=== PATIENT | female | born 1970 | race Caucasian/White ===

== ENCOUNTER 2018-03-05 13:55 | Inpatient (IN) ==
[2018-03-05 14:24] LABS: BASO# 0.03 X1000 (0.0-0.2); BASO% 0.2 % (0.0-0.8); EOS# 0.14 X1000 (0.0-0.7); EOS% 0.9 % (0.0-10.0); HEMATOCRIT 42.6 % (37.0-47.0); HEMOGLOBIN 13.6 g/dL (12.0-16.0); IMM GRAN# 0.12 X1000 (0.0-0.04); IMM GRAN% 0.8 % (0.0-0.5); LYMPH# 2.61 X1000 (1.2-3.4); LYMPH% 17.3 % (20.5-51.1); MCH 28.4 PG (27-31); MCHC 31.9 g/dL (33-37); MCV 88.9 FL (81-99); MONO# 1.13 X1000 (0.11-0.59); MONO% 7.5 % (1.7-9.3); MPV 8.8 FL (7.4-10.4); NEUT# 11.09 X1000 (1.4-6.5); NEUT% 73.3 % (42.2-75.2); PLT 526 X1000 (130-400); RBC 4.79 XMIL (4.2-5.4); WBC 15.12 X1000 (4.8-10.8)
[2018-03-05 14:53] LABS: AGAP 14; ALB/GLOB RATIO 0.9; ALBUMIN 3.7 g/dL (3.5-5.0); ALKALINE PHOSPHATASE 90 U/L (32-104); BUN 12 mg/dL (8-22); C REACTIVE PROT QUANT 63.37 mg/L (0.00-5.00); CALCIUM 9.5 mg/dL (8.8-10.2); CHLORIDE 103 mmol/L (98-107); COSMO 279; CREATININE 0.6 mg/dL (0.5-0.9); ESTIMATED GFR > 60; GLUCOSE 89 mg/dL (70-104); GOT 11 U/L (10-30); GPT 9 U/L (10-36); POTASSIUM 4.1 mmol/L (3.5-5.1); SODIUM 140 mmol/L (136-145); TCO2 23 mmol/L (25-35); TOTAL BILIRUBIN 0.17 mg/dL (0.20-1.00)
[2018-03-05 15:25] LABS: SED RATE 56 mm/hr (0-20)
--- NOTE | 2018-03-05 18:04 | PROVIDER DOCUMENTATION ---
HPI-Rash/Wound/ReCheck - General Chief Complaint: Rash Stated Complaint: RASH Time Seen by Provider: 03/05/18 17:31 Source: patient, family Allergies/Adverse Reactions: Allergies Allergy/AdvReac Type Severity Reaction Status Date / Time No Known Allergies Allergy Verified 12/08/16 23:58 Home Medications: Home Medication List Medication Instructions Recorded Confirmed Last Taken Type Hydrocodone/Acetaminophen [[place] 1 each PO Q4-6H PRN PRN #12 tablet 12/09/16 Unknown Rx 5-325 Tablet] - History of Present Illness-Dermatology Nature of Presenting Problem: reports that pt has erupted rash since wednesday, that involved her upper and lower extremities. it's painful, burning or sharp at times, thinking its worsening. her right ankle, knee, and fingers very painful to touch. patient reports that she was exposed to strep + at home (daughter and niece) prior to the rash. she had a sore throat very painful with difficulty of swallowing but did not have way to see a doctor. on wednesday she had a fever. then next morning she started out with the rash. Review of Systems - Adult - REVIEW OF SYSTEMS - ADULT Constitutional: reports: see HPI Eyes: reports: no symptoms reported Ears, Nose, Mouth & Throat: reports: no symptoms reported Cardiovascular: reports: no symptoms reported Respiratory: reports: no symptoms reported Gastrointestinal: reports: no symptoms reported Genitourinary: reports: no symptoms reported Musculoskeletal: reports: no symptoms reported Integumentary: reports: no symptoms reported Neurological: reports: no symptoms reported Psychiatric: reports: no symptoms reported Endocrine: reports: no symptoms reported Hematologic/Lymphatic: reports: no symptoms reported Allergic/Immunologic: reports: no symptoms reported All Other Systems: Reviewed and Negative Past History - Adult - PAST MEDICAL HISTORY-ADULT Review of Records: reports: Old Records Reviewed, Nursing Assessment Review, Medications Reviewed, Social history reviewed & non-contributory. Major Childhood Illnesses: reports: denies history Cardiovascular: reports: denies history Respiratory: reports: denies history Gastrointestinal: reports: denies history Obstetrical/Gynecological: reports: denies history Genitourinary: reports: denies history Musculoskeletal: reports: denies history Neurological: reports: denies history Endocrine/Immune: reports: denies history Other Conditions: reports: denies history - IMMUNIZATION STATUS Childhood Immunizations: See Nurse Assessment Flu Vaccine: See Nurse Assessment - FAMILY HISTORY Family History: reviewed, not pertinent - SOCIAL HISTORY Smoking: denies Substance Use: none/never Alcohol Use Frequency: never Living Situation: family Physical Exam-General - PHYSICAL EXAM-ADULT Initial Vital Signs Reviewed: Yes - CONSTITUTIONAL General Appearance: appears well, alert, no apparent distress - EYES Eyes: PERRL/EOMI, pink conjunctivae - HEAD, EARS, NOSE, MOUTH & THROAT HENMT: normocephalic/atraumatic, moist mucous membranes, normal ENT inspection, tonsillar exudate (healing on the left upper) - NECK Neck: non-tender, full range of motion - RESPIRATORY Respiratory: chest non-tender, lungs clear, normal breath sounds, no pleuratic chest pain - CARDIOVASCULAR Cardiovascular: normal peripheral pulses, no edema, systolic murmur - GASTROINTESTINAL (ABDOMEN) Abdominal Exam: normal bowel sounds, non tender, soft - MUSCULOSKELETAL Back Exam: normal inspection, no CVA tenderness, no vertebral tenderness Extremity: normal range of motion, normal gait, tenderness (right ankle, right knee, and right fingers) - SKIN Integumentary: purpura, rash (maculopapular nonblanching, warm, tenderness), tenderness, other - NEUROLOGIC Neurologic: grossly normal, no motor/sensory deficits - PSYCHIATRIC Psych/Mental Status: oriented x 3 Progress - PLAN OF CARE/RESULTS Progress/Plan/Lab Results: Vital Signs - 8 hr 03/05/18 13:58 Temperature 97.9 F Pulse Rate 99 H Respiratory Rate 16 Blood Pressure 99/58 O2 Sat by Pulse Oximetry 99 Laboratory Results - last 24 hr 03/05/18 03/05/18 14:08 14:08 WBC 15.12 H RBC 4.79 Hgb 13.6 Hct 42.6 MCV 88.9 MCH 28.4 MCHC 31.9 L RDW Std Deviation 13.0 Plt Count 526 H MPV 8.8 Immature Gran % (Auto) 0.8 H Neut % (Auto) 73.3 Lymph % (Auto) 17.3 L [place] % (Auto) 7.5 Eos % (Auto) 0.9 Baso % (Auto) 0.2 Immature Gran # (Auto) 0.12 H Neut # (Auto) 11.09 H Lymph # (Auto) 2.61 [place] # (Auto) 1.13 H Eos # (Auto) 0.14 Baso # (Auto) 0.03 ESR 56 H Sodium 140 Potassium 4.1 Chloride 103 Carbon Dioxide 23 L Anion Gap 14 BUN 12 Creatinine 0.6 Estimated GFR/1.73 m2 > 60 BUN/Creatinine Ratio 20 Glucose 89 Calculated Osmolality 279 Calcium 9.5 Total Bilirubin 0.17 L AST 11 ALT 9 L Alkaline Phosphatase 90 C-Reactive Prot, Quant 63.37 H Total Protein 8.0 Albumin 3.7 Globulin 4.3 Albumin/Globulin Ratio 0.9 Orders Category Date Time Status cxr [CHEST-2 VIEWS] [RAD] Stat Exams 03/05/18 17:56 Ordered BLOOD CULTURE [BLDCUL] Stat Lab 03/05/18 17:56 Uncollected C REACTIVE PROT QUANT [CHEM] Stat Lab 03/05/18 14:08 Completed CBC WITH DIFF [HEME] Stat Lab 03/05/18 14:08 Completed COMPREHENSIVE METABOLIC PANEL [CHEM] Stat Lab 03/05/18 14:08 Completed LACTATE, PLASMA [CHEM] Stat Lab 03/05/18 17:58 Uncollected SED RATE [HEME] Stat Lab 03/05/18 14:08 Completed URINALYSIS W/POSS RFLX CULT [URINALYSIS] Stat Lab 03/05/18 14:20 Uncollected EKG [EKG] Stat Ther 03/05/18 17:56 Ordered Result Diagrams: 03/05/18 14:08 03/05/18 14:08 - CONSULTS/PCP/HOSPITALIST Notification #1 *Consult/PCP/Hospitalist*: Dr. Potts Time Discussed: 18:08 (diffuse maculopapular rash , heart murmur, joint pain, vasculitis ) Consult Disposition: Admit Departure - Departure Date of Disposition Decision: 03/05/18 Time of Disposition Decision: 18:09 DIAGNOSIS: Vasculitis Disposition: ADMITTED INPATIENT 09 Certified Medical Emergency: Emergent Condition: Stable Referrals and Follow-Ups: None,PCP [Primary Care Provider] - - Critical Care Note This patient required my direct & personal management of CC.: No Attestation - Physician/ KATIE Attestation Patient care was provided by Advanced Practice Provider:: No The physician spent face to face time with patient:: Yes Advanced Practice Provider documentation review:: Supervising physician onsite and consulted in the evaluation and care of this patient. The physician did have a face to face encounter with the patient.
--- NOTE | 2018-03-05 18:23 | Diag Imaging Result Doc PS360 ---
EXAM: CHEST-2 VIEWS 03/05/2018 HISTORY: sob TECHNIQUE: PA and lateral chest COMMENT: There is no evidence of acute cardiac or pulmonary disease. There are no previous studies available for comparison. IMPRESSION: No acute disease. Electronically signed by Aquiles Sosa 03/05/2018 6:20 PM
[2018-03-05 18:36] LABS: URINE SOURCE CLEAN CATCH
[2018-03-05 18:43] LABS: BILIRUBIN URINE NEGATIVE (NEGATIVE); BLOOD URINE MODERATE (NEGATIVE); COLOR YELLOW; GLUCOSE URINE NEGATIVE (NEGATIVE); KETONE URINE NEGATIVE (NEGATIVE); LEUKOCYTES URINE NEGATIVE (NEGATIVE); NITRITE URINE NEGATIVE (NEGATIVE); PROTEIN URINE TRACE mg/dL (NEGATIVE); SP GRAVITY URINE 1.016; TURBIDITY URINE HAZY (CLEAR); UROBILINOGEN URINE NORMAL (NORMAL)
[2018-03-05 18:44] LABS: UR EPITHELIAL CELLS <10 /HPF (<10); URINE BACTERIA 1+ /HPF; URINE RBC <10 /HPF (<10)
--- NOTE | 2018-03-05 19:00 | ED EKG INTERP ---
This chart was entered by Chloe Hall Scribe, acting as scribe for Martha Contreras MD. EKG Interpretation - EKG Time of EKG reading by physician:: 17:53 EKG Read and Signed by:: Martha Contreras EKG Interpretation (*Must complete 3 of following elements*): Abnormal ( possible left atrial enlargement) Rate: 85 Rhythm: nsr [place]: normal QRS: normal [place] Interval: normal ST Wave: normal Attestation - Physician/ KATIE Attestation Patient care was provided by Advanced Practice Provider:: No The physician spent face to face time with patient:: Yes Advanced Practice Provider documentation review:: Supervising physician onsite and consulted in the evaluation and care of this patient. The physician did have a face to face encounter with the patient. This chart was documented by the indicated scribe, (Chloe Hall, Gill) and accurately reflects the services I performed and decisions made by me, Martha Contreras MD, as attested by the provider's signature.
--- NOTE | 2018-03-05 19:12 | HISTORY AND PHYSICAL ---
This is a 47-year-old white female. She has no primary care physician. She has been in good health. No medical problems. No surgical history. No history of allergies. She is not any medication. About a week ago she had a sore throat and she thought she might have had a strep throat. She never received any antibiotics, throat was sore for 3 or 4 days. She does not appreciate she did have fever but does not appreciate any adenopathy and then 2 days ago started having rash that developed on her hands and her thighs and it was it was a macular papular rash. I do not see target lesions, there is none on her palms there all on the exterior surface dorsal surface of her hand and on her thighs. Once again she is not eating anything unusual, no seafood, not on any medication, no exposure to new creams, she is not aware of any tick bites or insect bites recently. This rash started on Wednesday, today is the following Wednesday, involved her upper and lower extremities painful burning and sharp at times. Thinks it is worsening. She has some lesions on her right ankle and her knee, fingers are painful to touch. She was exposed to strep by her report. Her daughter was strep positive and this was maybe 2 weeks ago. She had a sore throat very painful difficulty swallowing did not see a doctor at that time. There is no oropharynx or nasal lesions, no vaginal lesions that she complains of, no increased discharge, no new reports of arthralgia other than I think her right ankle and she does hurt in her knee I think her right knee as well. FAMILY HISTORY: Positive for heart disease otherwise unremarkable. SOCIAL HISTORY: She quit smoking 6 months ago. She does drink any alcohol, denies any illicit drugs. REVIEW OF SYSTEMS: General: No weight gain, loss, no fever, chills until 2 weeks ago she had a couple days of fever and sore throat. No change in vision or hearing acuity. No cervical adenopathy reported, no sores in her mouth or gingiva or conjunctivitis. Respiratory: No increased work of breathing or dyspnea. Cardiovascular: No chest pain or tachy palpitation. GI and : No change in her bowels, no diarrhea or hematochezia, no nausea or vomiting. PHYSICAL EXAM: Today in the emergency room family was with her temperature 97.9 degrees, pulse 99, respirations 16, blood pressure 99/58. Pupils are equal and round. No distended neck veins. No cervical, supraclavicular, axillary adenopathy. LUNGS: Clear anterior lateral and posterior. CARDIOVASCULAR: Regular rhythm and rate without murmur or S3. ABDOMEN: Soft, nontender, nondistended. No hepatosplenomegaly I can appreciate. Conjunctivae pink. No sign of rash oral, nasal pharynx, no thyromegaly, no stiffness in her neck or pain. The rash on both hands fairly symmetrical confluent papular macular rash that has some erythema but they are tender to touch and they are confluent in places and concentrated mainly on her anterior thighs and on her dorsal hand and distal arm. LAB: White count 15,120, hematocrit 42, platelet count 526,000, sodium 140, potassium 4.1, chloride 103, BUN 12, creatinine 0.6, blood sugar was 89, AST 11, ALT was 9. C-reactive protein is 63, albumin 3.7. Chest x-ray looks completely unremarkable to me 2-view chest x-ray. ASSESSMENT AND PLAN: 1. Macular papular rash with a sore throat a couple weeks ago and it is tender and painful. It does not look like erythema nodosum and she does not have the target lesions you would expect on her palms but they are tender and her sedimentation rate is elevated, her white count is elevated with slight left shift. She has a mild mitral regurg murmur. I am going to go ahead and cover her with broad-spectrum antibiotics covering for staph and strep as well as well as some possible organisms that would be related to endocarditis. I am going to check an echocardiogram in the morning. I will ask Dr. White to follow. The decision on whether to try steroids at this point I am going to wait to talk to Dr. White and see how this progresses. This is possibly a viral infection. We will give her some IV fluids, normal saline and run it at 85 mL an hour. I will check ARMIN and ANCA as well as rheumatoid factor and proceed from there. cc: Suresh Potts MD
[2018-03-05] MEDS ORDERED: ZOFRAN IV PRN (21:52)
[2018-03-05] MEDS ORDERED: VANCOMYCIN 1 GM/NS 1 GM/250 ML IVPB IV ONE (21:52)
[2018-03-05] MEDS ORDERED: TYLENOL PO PRN (21:52)
[2018-03-05] MEDS: NORCO-7.5 PO PRN (22:08)
[2018-03-05] MEDS: ZOSYN 3.375 GM in NS 50 ML IV SCH (22:29)
[2018-03-05] MEDS: NS 1,000 ML IV SCH (22:29)
[2018-03-06] MEDS: ZOSYN 3.375 GM in NS 50 ML IV SCH ×2 (03:52→08:52)
[2018-03-06] MEDS: NORCO-7.5 PO PRN ×5 (05:30→21:30)
[2018-03-06 05:48] LABS: URINE SOURCE CLEAN CATCH
[2018-03-06 06:02] LABS: BILIRUBIN URINE NEGATIVE (NEGATIVE); BLOOD URINE MODERATE (NEGATIVE); COLOR YELLOW; GLUCOSE URINE NEGATIVE (NEGATIVE); KETONE URINE TRACE mg/dL (NEGATIVE); LEUKOCYTES URINE NEGATIVE (NEGATIVE); NITRITE URINE NEGATIVE (NEGATIVE); PROTEIN URINE 30 mg/dL (NEGATIVE); SP GRAVITY URINE 1.036; TURBIDITY URINE CLEAR (CLEAR); UROBILINOGEN URINE NORMAL (NORMAL)
[2018-03-06 06:03] LABS: UR EPITHELIAL CELLS <10 /HPF (<10); URINE BACTERIA NEGATIVE /HPF; URINE WBC <10 /HPF (<10)
[2018-03-06 06:54] LABS: BASO# 0.02 X1000 (0.0-0.2); BASO% 0.2 % (0.0-0.8); EOS% 1.7 % (0.0-10.0); HEMATOCRIT 38.2 % (37.0-47.0); HEMOGLOBIN 12.1 g/dL (12.0-16.0); IMM GRAN# 0.11 X1000 (0.0-0.04); LYMPH# 2.43 X1000 (1.2-3.4); MCH 28.7 PG (27-31); MCHC 31.7 g/dL (33-37); MCV 90.5 FL (81-99); MONO# 1.04 X1000 (0.11-0.59); MPV 9.2 FL (7.4-10.4); NEUT# 7.76 X1000 (1.4-6.5); NEUT% 67.1 % (42.2-75.2); PLT 459 X1000 (130-400); RBC 4.22 XMIL (4.2-5.4); RDW 13.1 % (11.5-14.5); WBC 11.56 X1000 (4.8-10.8)
[2018-03-06 07:13] LABS: ALB/GLOB RATIO 0.9; ALBUMIN 3.3 g/dL (3.5-5.0); ALKALINE PHOSPHATASE 78 U/L (32-104); BUN 13 mg/dL (8-22); CALCIUM 8.3 mg/dL (8.8-10.2); CREATININE 0.6 mg/dL (0.5-0.9); ESTIMATED GFR > 60; GLUCOSE 121 mg/dL (70-104); GOT 19 U/L (10-30); GPT 17 U/L (10-36); TCO2 24 mmol/L (25-35); TOTAL BILIRUBIN 0.18 mg/dL (0.20-1.00)
[2018-03-06 07:17] LABS: INR 0.95; PROTIME 13.4 Seconds (11.0-16.0)
[2018-03-06 07:18] LABS: PTT 33.1 Seconds (22.3-41.8)
[2018-03-06 08:17] LABS: CHLORIDE 105 mmol/L (98-107); POTASSIUM 3.7 mmol/L (3.5-5.1); SODIUM 142 mmol/L (136-145)
[2018-03-06 08:21] LABS: AGAP 13; COSMO 284
[2018-03-06] MEDS: PRILOSEC PO SCH (08:52)
[2018-03-06] MEDS: NS 1,000 ML IV SCH ×2 (08:53→23:30)
--- NOTE | 2018-03-06 11:38 | INFECTIOUS DISEASE CONSULT REP ---
DATE: 03/06/2018 CONCLUSION: The patient is admitted to the hospital with erythematous macular lesions on the arms, legs and in the mouth. I think the patient has a viral infection, namely [id number] disease caused by Coxsackie virus. RECOMMENDATIONS: I have discontinued Zosyn. If the patient does not run any fever and if her white count has normalized or is coming down, I think then she could possibly be discharged tomorrow on no medication. DISCUSSION: The patient tells me about a week ago she started to develop a diffuse erythematous macular rash. It was mainly on her arms and legs. Also, she had some intraoral ulcerated and erythematous lesions as well. She had a niece who recently had a streptococcal throat infection. The patient's laboratory studies thus far show a CBC with a white count of 11, 560, hemoglobin 12.1, and platelet count 459,000. Creatinine is 0.6, GFR is greater than 60. Rheumatoid factor is in the normal range, it is 13 with normal being 0 to 14. Urinalysis shows no white cells or bacteria. Blood and urine cultures are pending. Chest x-ray shows no acute disease. PAST MEDICAL HISTORY/REVIEW OF SYSTEMS: Eyes and ears: Patient does not have a problem hearing or seeing. Neck: No stiffness. Integument: See present illness. Head, eyes, ears, nose, and throat: She does not have any problems with hearing or seeing. She does have intraoral lesions as mentioned above. No stiffness. Respiratory: No cough or shortness of breath. Cardiac: No chest pain or palpitations. GI: No nausea, vomiting, or diarrhea. : No dysuria or flank pain. neurologic: No seizures. No loss of motor function. RUG LAYER HISTORY: She is a 5 para 5 AB 0. She has had a tubal ligation. PREVIOUS HOSPITALIZATIONS AND OPERATIONS: She has had labor and deliveries, a tubal ligation and surgery on her jaw, which included placing a metal plate because of fracture of the mandible. MEDICAL DISEASES: Positive for hyperlipidemia. INFECTIOUS DISEASE HISTORY: Patient had a strep throat approximately 14 years ago. She has not recently had pneumonia or urinary tract infection. FAMILY HISTORY: Positive for diabetes mellitus, hypertension and stroke. SOCIAL HISTORY[place] daughter lives with her. Her daughter has dogs. The patient lives with the person she is engaged to. She stopped smoking cigarettes 7 months ago. She does not drink alcoholic beverages or abuse drugs. ALLERGIES: She has no known allergies. MEDICATIONS: No home medications. PHYSICAL EXAMINATION: Vital Signs: Temperature is 98.4 degrees, pulse 71, respirations 16, blood pressure 108/52. The patient is 5 feet 3 inches tall, weighs 155 pounds. General: This is a slightly obese, middle-aged female. She is in no acute distress. Head, eyes, ears, nose, and throat: She can hear my spoken words and see near objects. No drainage is coming from the nose or ears. I did not see any ulcers on examining the patient at this time. There was no exudate on the tonsils. Neck: No meningismus. No adenopathy. Lungs: Clear to auscultation. Cardiovascular: Heart rate is regular. Abdomen: Soft and nontender. Neurologic: Patient is alert. She can move her extremities. There is no tremor. Her sensation is intact to touch. Her memory as regarding her medical history seemed to be intact. Integument: Patient has diffuse erythematous macular lesions. Some look as if they might be beginning to form vesicles, but I did not see any definite vesicle. The lesions are tender. Thank you for the consult. cc: Sukumar White MD MTDD
--- NOTE | 2018-03-06 16:45 | PROGRESS NOTE ---
DATE: 03/06/2018 Is feeling better. Temperature is 97.8 degrees, pulse 65, respirations 18, blood pressure 108/54. Pupils are equal and round.Lungs: Clear in all lung lr. Cardiovascular: Regular rhythm and rate without murmur S3. Her macular papular lesions on her hands and thighs about the same, they are [employer] suspected viral infection, Dr. White has seen her probably [id number] disease caused by Coxsackie virus, antibiotics were stopped, going to observe her tonight. She remains afebrile, do not see any other source of infection. No oral, nasal mucosa lesions , no elevated liver enzymes. cc: Suresh Potts MD
[2018-03-07] MEDS: NORCO-7.5 PO PRN ×4 (01:41→14:41)
[2018-03-07] MEDS ORDERED: BENADRYL IV ONE (02:52)
[2018-03-07 03:06] VITALS: BP 117/62
[2018-03-07 07:11] LABS: BASO# 0.03 X1000 (0.0-0.2); BASO% 0.4 % (0.0-0.8); EOS% 2.6 % (0.0-10.0); HEMATOCRIT 37.6 % (37.0-47.0); HEMOGLOBIN 11.9 g/dL (12.0-16.0); LYMPH# 2.14 X1000 (1.2-3.4); LYMPH% 28.2 % (20.5-51.1); MCH 28.9 PG (27-31); MCHC 31.6 g/dL (33-37); MCV 91.3 FL (81-99); MONO# 0.63 X1000 (0.11-0.59); MONO% 8.3 % (1.7-9.3); NEUT# 4.58 X1000 (1.4-6.5); NEUT% 60.5 % (42.2-75.2); PLT 433 X1000 (130-400); RBC 4.12 XMIL (4.2-5.4); WBC 7.58 X1000 (4.8-10.8)
--- NOTE | 2018-03-07 07:28 | EKG Report ---
Test Performed on : 03/06/2018 06:22:22 AM Test Reason : sob Blood Pressure : / mmHG Vent. Rate : 074 BPM Atrial Rate : 074 BPM P-R Int : 152 ms QRS Dur : 076 ms QT Int : 396 ms P-R-T Axes : 073 073 057 degrees QTc Int : 439 ms Normal sinus rhythm. Normal ECG When compared with ECG of 05-MAR-2018 17:53, (Unconfirmed) No significant change was found Unconfirmed Result
[2018-03-07] MEDS: PRILOSEC PO SCH (09:52)
[2018-03-07] MEDS: NS 1,000 ML IV SCH (09:55)
[2018-03-07] MEDS ORDERED: CALMOSEPTINE OINTMENT TOP PRN (09:56)
[2018-03-07] MEDS: BENADRYL PO PRN ×2 (11:29→15:41)
--- NOTE | 2018-03-07 13:37 | DISCHARGE SUMMARY ---
ADMISSION DATE: 03/05/2018 DISCHARGE DATE: 03/07/2018 HOSPITAL COURSE: I anticipate discharge 03/07/2018. She presented to the hospital with erythematous macular papular lesions arms and anterior thighs, dorsal hands and distal forearms. She did have some early lesions in the mouth and suspect this is a viral infection with hand-foot- mouth disease and probably Coxsackie virus. It should resolve. Lab was unremarkable, CBC and electrolytes, no active lymphadenopathy. So, felt she could be discharged home on 03/07/2018. DISCHARGE ORDERS: She can take some Tylenol 1 to 2 p.r.n. I will give her a couple of [place] 7.5, as lesions were painful, so I gave her 20 of these. She can have 1 q.4 hours p.r.n. pain. She is to follow up with her primary care. cc: Suresh Potts MD
--- NOTE | 2018-03-07 14:05 | ECHO REPORT ---
ORDER DATE: 03/06/2018 MEASUREMENTS: 1. Left ventricular end-diastolic diameter of 4.2. 2. End-systolic 2.8. 3. Septal thickness 1.0. 4. Posterior wall thickness 0.9. 5. Aortic root 2.6. 6. Left atrium 3.8. SUMMARY: 1. Adequate quality study. 2. Aortic valve is trileaflet and opens normally on 2-dimensional images. Peak gradient across aortic valve is 12 mmHg. Mitral, tricuspid, and pulmonic valves are without evidence of structural abnormality with trace mitral regurgitation, trace tricuspid regurgitation, and mild pulmonic insufficiency. The aortic root is normal in size. 3. Normal left ventricular dimensions demonstrated. Estimated left ventricular ejection fraction appears to be at least 65%. No regional wall motion abnormalities are evident. Left atrium, right atrium, right ventricle are normal size with normal right ventricular systolic function. 4. No pericardial effusion. 5. Appearance of inferior vena cava suggests normal central venous pressure. CONCLUSIONS: 1. No significant valvular abnormality evident. 2. Normal left ventricular function without wall motion abnormality evident. cc: MD Suresh Ram MD
== END 2018-03-07 16:15 | disposition home or self-care (01) | DRG 866 ==
LOC: ED 13:55 → EDIPHOLD 20:46 → 3N 03-06 07:06
PROVIDERS: ATTEND Emergency Medicine
CPT/HCPCS: 36415; 71020; 71046; 80053; 81001; 83605; 83735; 84436; 84443; 85025; 85610; 85651; 85730; 86038; 86039; 86140; 86431; 87040; 87088; 93005; 93306; 96361; 96365; 96366; 96367; 96368; 99285; A9270; J1200; J2543; J3370; J7030